=== PATIENT | female | born 1965 | race Caucasian/White ===

== ENCOUNTER 2019-02-09 15:07 | Emergency (ER) | payer MEDICAID ==
[~2019-02-09] VITALS: Ht 142.2 cm; Wt 64.9 kg
--- NOTE | 2019-02-09 17:20 | NUR ---
no answer in er lobby
--- NOTE | 2019-02-09 20:00 | NUR ---
PT AMBULATED TO CHAIR C.
--- NOTE | 2019-02-09 20:01 | NUR ---
PT CAME INTO ER WITH C/O L EAR PAIN X4 DAYS. DENIES N/V/F. PT IS ALERT AND ORIENTED X4. PT PAIN LEVEL IS 6/10 AT THIS TIME. ER MD MADE AWARE OF STATUS, SAFETY MEASURES IN PLACE, ER MD MADE AWARE OF STATUS.
--- NOTE | 2019-02-09 20:17 | NUR ---
Patient discharged with v/s stable. Written and verbal after care instructions given and explained. Patient alert, oriented and verbalized understanding of instructions. Ambulatory with steady gait. All questions addressed prior to discharge. ID band removed. Patient advised to follow up with PMD. Rx of AMOXICILLIN WAS given. Patient educated on indication of medication including possible reaction and side effects. Opportunity to ask questions provided and answered.
== END 2019-02-09 20:17 | disposition home or self-care (01) ==
LOC: MED 15:07
DX: H66.92 Otitis media, unspecified, left ear (principal)
CPT/HCPCS: 99283

== ENCOUNTER 2020-01-19 21:35 | Emergency (ER) | payer MEDICAID ==
[~2020-01-19] VITALS: Ht 157.5 cm; Wt 65.8 kg
[2020-01-19 22:12] VITALS: BP 131/74
--- NOTE | 2020-01-19 22:21 | NUR ---
PT TAKEN TO BED 1
--- NOTE | 2020-01-19 23:19 | NUR ---
PT'S WAS DX WITH COVID YESTERDAY, SHE STATES SHE STARTED DEVELOPING A SORE THROAT AND HEADACHE 2 DAYS AGO. PT IS AFEBRILE, DENIES SOB AND NO COUGH. BILATERAL LUNGS CLEAR. PT O2 SAT ON ROOM AIR IS 100%. PT PLACED ON BEDSIDE MONITOR. BED IN LOWEST POSITION AND SIDERAIL UP X 1. NKA DENIES HX
--- NOTE | 2020-01-19 23:30 | NUR ---
Dr. Jackson examining patient.
[2020-01-19] MEDS ORDERED: KETOROLAC 30 MG/ML VIAL IM ONE (23:40)
--- NOTE | 2020-01-20 | NUR ---
covid swab collected and taken to lab.
[2020-01-20 00:01] VITALS: BP 114/52
--- NOTE | 2020-01-20 00:02 | NUR ---
Patient discharged with v/s stable. Written and verbal after care instructions given and explained. Patient alert, oriented and verbalized understanding of instructions. Ambulatory with steady gait. All questions addressed prior to discharge. ID band removed. Patient advised to follow up with PMD. Rx of motrin and narosyn given. Patient educated on indication of medication including possible reaction and side effects. Opportunity to ask questions provided and answered.
--- NOTE | 2020-01-20 14:42 | NUR ---
Received positive covid results from lab. Copy to go to [facility] at infection control
== END 2020-01-20 00:02 | disposition home or self-care (01) ==
LOC: MED 21:35
DX: J02.9 Acute pharyngitis, unspecified (principal); Z20.828 Contact with and (suspected) exposure to other viral communicable diseases; R51 Headache
CPT/HCPCS: 96372; 99283; J1885; U0003

== ENCOUNTER 2020-12-03 10:08 | Emergency (ER) | payer MEDICAID ==
[~2020-12-03] VITALS: Ht 149.9 cm; Wt 68.0 kg
[2020-12-03 10:18] VITALS: BP 114/91
[2020-12-03] MEDS ORDERED: KETOROLAC 30 MG/ML VIAL IM ONE (10:50)
[2020-12-03] MEDS ORDERED: IBUP-2213 PO (10:56)
[2020-12-03] MEDS ORDERED: LOTC TP (10:56)
[2020-12-03 11:03] VITALS: BP 114/91
== END 2020-12-03 11:03 | disposition home or self-care (01) ==
LOC: MED 10:08
DX: M54.41 Lumbago with sciatica, right side (principal); B35.3 Tinea pedis; E11.9 Type 2 diabetes mellitus without complications; I10 Essential (primary) hypertension; Z79.899 Other long term (current) drug therapy
CPT/HCPCS: 96372; 99283; J1885

== ENCOUNTER 2020-12-07 09:48 | Emergency (ER) | payer MEDICAID ==
[~2020-12-07] VITALS: Ht 134.6 cm; Wt 68.0 kg
[~2020-12-07 09:48] MED LIST: IBUP-2213 PO; LOTC TP
[2020-12-07 09:52] VITALS: BP 123/62
--- NOTE | 2020-12-07 10:03 | NUR ---
pt ambulated to bed 02.
--- NOTE | 2020-12-07 11:02 | NUR ---
55 Y/O F BIB SELF FROM HOME, PATIENT PRESENTS TO ED WITH R FOOT PAIN FOR 15 DAYS. PT STATES SHE THINKS SHE MIGHT HAVE STEPPED ON SOMETHING SHARP. DENIES N/V/D; SKIN IS PINK/WARM/DRY, ON R FOOT PT HAS DARK SPOT AND BRUISING ON DORSAL FOOT; AAOX4 WITH EVEN AND STEADY GAIT, HURTS TO BESR WEIGHT ON R FOOT; LUNGS CLEAR BL; HR EVEN AND REGULAR; PT DENIES ANY FEVER, CP, SOB, OR COUGH AT THIS TIME; PATIENT STATES PAIN OF 8/10 AT THIS TIME; VSS; PATIENT POSITIONED FOR COMFORT; HOB ELEVATED; BEDRAILS UP X2; BED DOWN. ER MD MADE AWARE OF PT STATUS. PMH: DM2, HIGH CHOLESTROL NKA MED: IBUPROFEN 600MG
--- NOTE | 2020-12-07 11:16 | NUR ---
Patient discharged with v/s stable. Written and verbal after care instructions given and explained. Patient verbalized understanding. Ambulatory with steady gait. All questions addressed prior to discharge. Advised to follow up with PMD.
== END 2020-12-07 11:16 | disposition home or self-care (01) ==
LOC: MED 09:48
DX: S90.821A Blister (nonthermal), right foot, initial encounter (principal); E11.9 Type 2 diabetes mellitus without complications; I10 Essential (primary) hypertension; X58.XXXA Exposure to other specified factors, initial encounter; Y93.89 Activity, other specified; Y92.89 Other specified places as the place of occurrence of the external cause; Y99.8 Other external cause status
CPT/HCPCS: 82948; 99283